=== PATIENT | male | born 1970 | race Caucasian/White ===

== ENCOUNTER 2023-03-18 06:19 | Day surgery (SDC) | payer OTHER ==
[~2023-03-18] VITALS: Ht 172.7 cm; Wt 79.5 kg
[2023-03-18] MEDS ORDERED: LIDOCAINE 4% 50 ML SOLUTION TP ONE (06:20)
[2023-03-18] MEDS ORDERED: LIDOCAINE 2% 11 ML JELLY TP ONE (06:20)
[2023-03-18] MEDS ORDERED: BENZOCAINE 20% 50 MCG/SPRAY 57 GM TP ONE (06:20)
[2023-03-18] MEDS ORDERED: SODIUM CHLORIDE 0.9% 1,000 ML ONE (07:51)
[2023-03-18] MEDS ORDERED: SODIUM CHLORIDE 0.9% 1,000 ML IV ONE (08:30)
[2023-03-18] MEDS ORDERED: MIDAZOLAM HCL 2 MG/2 ML VIAL ONE (08:37)
[2023-03-18] MEDS ORDERED: FentaNYL CITRATE PF 100 MCG/2 ML VIAL ONE (08:37)
[2023-03-18 09:30] VITALS: PULSE 77; RESP 24; O2SAT 99
[2023-03-18] MEDS ORDERED: MethylPREDNISolone SOD SUCC 125 MG/2 ML VIAL IVP ONE (09:30)
[2023-03-18] MEDS ORDERED: MethylPREDNISolone SOD SUCC 125 MG/2 ML VIAL ONE (09:39)
== END 2023-03-18 11:25 | disposition home or self-care (01) ==
LOC: SURGERY 06:19
PROVIDERS: ATTEND Internal Medicine Critical Care Medicine
DX: J38.4 Edema of larynx (principal); B37.0 Candidal stomatitis; Z72.89 Other problems related to lifestyle; Z98.890 Other specified postprocedural states; Z79.899 Other long term (current) drug therapy
CPT/HCPCS: 31623; 87206; 87101; 87220; 87070; 88108; 87015; 31624; 71045; J3010; J2250; J2930; Q9967; J7030; Z7610